=== PATIENT | female | born 1955 | race Caucasian/White ===

== ENCOUNTER → 2016-11-01 | Outpatient (CLI) | payer OTHER | LOC: FIMAGING 16:22 | PROVIDERS: ATTEND Internal Medicine Hematology & Oncology | DX: I82.412 Acute embolism and thrombosis of left femoral vein (principal); I82.432 Acute embolism and thrombosis of left popliteal vein; I82.890 Acute embolism and thrombosis of other specified veins ==

== ENCOUNTER → 2016-12-23 | Outpatient (CLI) | payer OTHER | LOC: FIMAGING 14:24 | PROVIDERS: ATTEND Internal Medicine Hematology & Oncology | DX: I82.402 Acute embolism and thrombosis of unspecified deep veins of left lower extremity (principal) ==

== ENCOUNTER 2018-05-02 14:23 | Inpatient (IN) | payer OTHER ==
--- NOTE | 2018-05-02 14:40 | EDPHY ---
H & P Time Seen by Provider: 05/02/18 14:26 HPI/ROS: Chief complaint. Weakness, fall last night HPI. 62-year-old female here by EMS. Apparent new and recent diagnosis about a week ago of COPD and pneumonia. She had a fall and broke her radius and ulna 1 week ago. While she was at the hospital she was diagnosed with COPD and pneumonia. She had wrist surgery 3 days ago. It was recommended that she go to jail facility but refused and has been staying with a friend. She realizes she is not going to be able to manage staying at the friend's house. She was unable to care for herself. Last night she was unable to get off the toilet by herself and slid down to the floor and slipped on the bathroom floor. She is taking Zithromax and prednisone for her COPD and pneumonia. She normally lives by herself. She was started on 24/7 oxygen at 6 liters/minute after discharge from the hospital. She has no chest discomfort. No worsening shortness of breath no abdominal pain. Mild pain in the left wrist but good sensation and movement to the fingers of the left hand. She is in a splint and sling ROS 10 systems were reviewed and negative with the exception of the elements mentioned in the history of present illness Past Medical/Surgical History: COPD, TBI, migraines, PTSD, depression, DVT, chronic renal insufficiency, appendectomy, cholecystectomy, recent ORIF left wrist Social History: Single, nonsmoker, no alcohol Physical Exam: General Appearance: Well-developed female mild distress vital signs are stable. 87% at oxygen saturation on room air Eyes: Pupils equal and round no pallor or injection. ENT, Mouth: Mucous membranes are moist. Respiratory: No retractions. Mild inspiratory expiratory wheezing Cardiovascular: Regular rate and rhythm. Gastrointestinal: Abdomen is soft and nontender, no masses, bowel sounds normal. Neurological: Awake and alert, sensory and motor exams grossly normal. Skin: Warm and dry, no rashes. Musculoskeletal: Neck is supple nontender. Extremities bruising to the fingers of the left hand. Good range of motion. Normal sensation. Capillary refill less than 2 sec Psychiatric: Patient is oriented X 3, there is no agitation. Constitutional: Initial Vital Signs Temperature (C) 36.4 C 05/02/18 14:35 Heart Rate 79 05/02/18 14:35 Respiratory Rate 22 H 01/05/19 14:35 Blood Pressure 139/83 H 05/02/18 14:35 O2 Sat (%) 87 L 05/02/18 14:35 O2 Delivery Mode Nasal Cannula O2 (L/minute) 5 Allergies/Adverse Reactions: Cephalosporins Allergy (Verified 05/02/18 14:47) Penicillins Allergy (Verified 05/02/18 14:47) Sulfa (Sulfonamide Antibiotics) Allergy (Verified 05/02/18 14:47) Home Medications: Medication Instructions Recorded Abilify 05/02/18 Albuterol 5 mg/ml INH 05/02/18 Azithromycin 05/02/18 CLONAZEPAM 05/02/18 Cymbalta 05/02/18 Minocycline HCl 05/02/18 Mirtazapine 05/02/18 Neurontin 05/02/18 Ritalin 5mg (*) 05/02/18 Topamax 05/02/18 Unk Copd Inhaler 05/02/18 oxyCODONE CR 05/02/18 Medical Decision Making - Diagnostics Imaging Results: Imaging Impressions Chest X-Ray 05/02/18 15:06 Impression: Findings suggestive of heart failure/fluid overload, superimposed pneumonia cannot be radiographically excluded Wrist X-Ray 05/02/18 15:07 Impression: Postsurgical changes of open reduction and internal fixation of a comminuted distal radial metaphysis fracture in good anatomic alignment. Mildly displaced ulnar styloid fracture. Procedures: IV normal saline DuoNeb updraft air battle manager evaluation ED Course/Re-evaluation: air battle manager is unable to make direct admit to [facility]. Patient and I discussed imaging and lab results. We discussed treatment plan including recommendation for admission. She expresses understanding and agreement I consulted discussed case with Dr. Lopez, hospitalist, who agrees to the admission BNP is pending Differential Diagnosis: Patient is new diagnosis of COPD and now oxygen dependent. She also had a diagnosis of pneumonia. Chest x-ray really appears to be more CHF than evidence for pneumonia. She has failed outpatient treatment and will be admitted for jail facility placement - Data Points Laboratory Results: Laboratory Results 05/02/18 15:28 05/02/18 15:28 05/02/18 05/02/18 05/02/18 15:28 15:28 15:28 WBC 7.98 10^3/uL 10^3/uL (3.80-9.50) RBC 5.22 10^6/uL 10^6/uL (4.18-5.33) Hgb 17.5 g/dL H g/dL (12.6-16.3) Hct 55.6 % H % (38.0-47.0) MCV 106.5 fL H fL (81.5-99.8) MCH 33.5 pg pg (27.9-34.1) MCHC 31.5 g/dL L g/dL (32.4-36.7) RDW 15.1 % % (11.5-15.2) Plt Count 172 10^3/uL 10^3/uL (150-400) MPV 10.0 fL fL (8.7-11.7) Neut % (Auto) 67.3 % % (39.3-74.2) Lymph % (Auto) 17.8 % % (15.0-45.0) [place] % (Auto) 11.7 % % (4.5-13.0) Eos % (Auto) 2.6 % % (0.6-7.6) Baso % (Auto) 0.3 % % (0.3-1.7) Nucleat RBC Rel Count 0.0 % % (0.0-0.2) Absolute Neuts (auto) 5.38 10^3/uL 10^3/uL (1.70-6.50) Absolute Lymphs (auto) 1.42 10^3/uL 10^3/uL (1.00-3.00) Absolute Monos (auto) 0.93 10^3/uL H 10^3/uL (0.30-0.80) Absolute Eos (auto) 0.21 10^3/uL 10^3/uL (0.03-0.40) Absolute Basos (auto) 0.02 10^3/uL 10^3/uL (0.02-0.10) Absolute Nucleated RBC 0.00 10^3/uL 10^3/uL (0-0.01) Immature Gran % 0.3 % % (0.0-1.1) Immature Gran # 0.02 10^3/uL 10^3/uL (0.00-0.10) Sodium 138 mEq/L mEq/L (135-145) Potassium 4.5 mEq/L mEq/L (3.5-5.2) Chloride 108 mEq/L mEq/L (97-110) Carbon Dioxide 27 mEq/l mEq/l (22-31) Anion Gap 3 mEq/L L mEq/L (6-14) BUN 16 mg/dL mg/dL (7-23) Creatinine 0.8 mg/dL mg/dL (0.6-1.0) Estimated GFR > 60 Glucose 89 mg/dL mg/dL (70-100) Calcium 8.7 mg/dL mg/dL (8.5-10.4) NT-Pro-B Natriuret Pep Pending Medications Given: Discontinued Medications Albuterol/Ipratropium (Duoneb) 3 ml IH EDNOW ONE Stop: 05/02/18 15:07 Last Admin: 05/02/18 15:12 Dose: 3 ml Departure - Departure Disposition: [facility] Inpatient Acute Clinical Impression: Dyspnea Qualifiers: Dyspnea type: shortness of breath Qualified Code(s): R06.02 - Shortness of breath; R06.00 - Dyspnea, unspecified; R06.01 - Orthopnea Condition: Good Referrals: Patient,NotPresent [Unknown] - As per Instructions
[2018-05-02] MEDS: IPRATROPIUM/ALBUTEROL 3 ML DEYVIAL IH ONE (15:12)
[2018-05-02 15:41] LABS: PLATELET COUNT 172 10^3/uL (150-400)
[2018-05-02] MEDS ORDERED: ALBUTEROL 60 PUFFS/8 GM MDI IH PRN (17:02)
[2018-05-02] MEDS ORDERED: ACETAMINOPHEN 325 MG TAB PO PRN (17:02)
[2018-05-02] MEDS ORDERED: ONDANSETRON 4 MG/2 ML VIAL IVP PRN (17:02)
[2018-05-02] MEDS ORDERED: ONDANSETRON DISINTEGRATING 4 MG TAB PO PRN (17:02)
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
--- NOTE | 2018-05-02 19:27 | ASMTCMCOM ---
CM Note CM Note Notes: Pt presented to the ED via EMS for weakness, mechanical fall and inability to care for herself. Pt was discharged from [facility] yesterday. Pt had been admitted for left wrist fracture (which was surgically repaired). Pt reportedly went into acute resp failure, was intubated and on their ICU for 3 days.(See H&P for more info and PMH). Pt had initially been recommended to DC from [facility] to [facility] but because was unable to accept pt's therapy cat, pt elected to DC to a friend's house instead. Pt did not fill her Rxns and later was took weak to get off the toilet last night and so she slept on the bathroom floor. Pt now states she realizes she needs additional help and has been able to have her therapy cat stay w/her friend Libby. Spoke w/Carl Hernandez in Admissions at [facility] and he states that he was able to confirm that pt had at least 3 midnights at [facility] so she would be able to be admitted to as early as Friday as soon as her insurance authorizes the SNF stay. Pt has [place] [employer] and it can take 48-72 hours to authorize. This CM faxed completed RODRÍGUEZ to [facility] and medical records from most recent admission received and tubed up to 3E to be placed in pt's chart. Pt lives in [place]. Pt's PCP is Ana Cristina Campbell. IAnticipate pt to DC to [facility]. CM to follow. Date Signed: 05/02/2018 07:27 PM Electronically Signed By:Radha Hayden RN
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
--- NOTE | 2018-05-02 20:55 | CPEKG ---
Test Reason : OPEN Blood Pressure : / mmHG Vent. Rate : 071 BPM Atrial Rate : 071 BPM P-R Int : 187 ms QRS Dur : 086 ms QT Int : 390 ms P-R-T Axes : 072 076 005 degrees QTc Int : 424 ms Sinus rhythm Abnormal T, consider ischemia, anterior leads Confirmed by Haider Arias ([id number]) on 05/02/2018 8:54:17 PM Referred By: Confirmed By:Haider Arias
[2018-05-02] MEDS: DOXEPIN HCL 10 MG CAP PO SCH (20:59)
[2018-05-02] MEDS: MIRTAZAPINE 30 MG TAB PO SCH (20:59)
[2018-05-02] MEDS: TOPIRAMATE 100 MG TAB PO SCH (20:59)
[2018-05-02] MEDS: DULoxetine 60 MG CAP PO SCH (20:59)
[2018-05-02] MEDS: MINOCYCLINE HCL 50 MG CAP PO SCH (20:59)
[2018-05-02] MEDS: clonazePAM 1 MG TAB PO SCH (20:59)
[2018-05-02] MEDS: GABAPENTIN 400 MG CAP PO SCH (20:59)
[2018-05-02] MEDS ORDERED: IPRATROPIUM/ALBUTEROL 3 ML DEYVIAL IH SCH (21:00)
[2018-05-02] MEDS: RIVAROXABAN 15 MG TAB PO SCH (21:02)
[2018-05-02] MEDS: oxyCODONE IR 5 MG TAB PO PRN (21:14)
[2018-05-02] MEDS: FLUTICASONE/SALMETER 500/50MCG DISKUS IH SCH (22:37)
[2018-05-02] MEDS ORDERED: ALBUTEROL HFA 200 PUFFS/8.5 GM MDI IH PRN (23:00)
[2018-05-03 06:53] LABS: PLATELET COUNT 173 10^3/uL (150-400)
--- NOTE | 2018-05-03 08:31 | PDMN ---
Medical Necessity Medical necessity: [facility] systemic condition adult failure to thrive pt recently DC from [place] on 6 L O2- pt went to friends house unable to care for self. cont. with 6 LO2, ( previously on none)- CXR suggests pulm. edema, pt with cough, chronic leg swelling, gen. weakness, PT/OT needed,
[2018-05-03] MEDS ORDERED: ENOXAPARIN 40 MG/0.4 ML SYR SC SCH (09:00)
--- NOTE | 2018-05-03 09:33 | HOSPPROG ---
Hospitalist Progress Note Assessment/Plan: 62yo F who was discharged 05/[address] [facility] hospital after 7 day hospitalization presents with weakness and inability to care for self. Hospitalized at [facility] after fall where she broke her left wrist. This was surgically repaired. She went into respiratory failure while at the hospital, was intubated and spent 3 days in the ICU. She was diagnosed with pneumonia and COPD exacerbation and was discharged on 6L of supplemental oxygen (previously on none) as well as azithromycin and steroids but she had not picked up prescriptions for these. Providers at [facility] had recommended SNF but she refused and went to stay at friend's house but she was too weak to get off the toilet last night and slept on the ground. First encounter, chart reviewed. * Deconditioning, generalized weakness -recent hospitalization -patient agreeable to SNF * Subacute hypoxic respiratory failure -reviewed records from [facility]-she had respiratory failure from narcotic use - hypercarbic resp failure -also noted to have COPD, she had a CTA that showed no PE but RLL pna -TTE showed LVEF of 55% w mild RV dilation (done at [facility]) -chest xray and BNP show pulm edema * COPD -inhalers, prn duonebs -she was on Prednisone [address] [facility] *tobacco dependence * Polycythemia: Suspect related to chronic hypoxia -secondary from chronic hypoxemia -reviewed her labs from [facility]-ongoing * Macrocytosis -B12 and folate levels stable * H/o recurrent DVTs - Xarelto. * Recent L wrist fracture: - S/p ORIF at [facility] on 04/29. Currently in cast -will need sutures removed in 10-12 days from the day of ORIF -will need to be converted to a short arm cast in 3-4 weeks -f/u with Dr Sahu w orthopedics -TDWB w left upper extremity, no lifting, pushing or pulling *Depression, anxiety, PTSD: Continue home mirtazapine, terazosin, Abilify, Cymbalta. * Migraine headaches: - Topamax, Imitrex PRN. * Chronic pain: Continue gabapentin, home oxycodone PRN. * H/o CKD: Cr 0.8. *hx of TBI *plan: nicotine patch, Lasix x 1, continue supportive care, discussed case w CM who is looking into SNF for Alisa. Subjective: Alisa is asking for a nicotine patch. Has no specific complaints. Objective: Vital Signs Temp Pulse Resp BP Pulse Ox 36.7 C 78 16 120/71 94 05/03/18 08:00 05/03/18 08:00 05/03/18 08:00 05/03/18 08:00 05/03/18 08:00 Laboratory Results 05/03/18 05:26 05/03/18 05:26 05/02/18 05/03/18 05/04/18 05:59 05:59 05:59 Intake Total 600 Output Total 1500 Balance -900 - Physical Exam Constitutional: appears nourished, chronically ill appearing Eyes: PERRL Ears, Nose, Mouth, Throat: hearing normal Cardiovascular: regular rate and rhythym Respiratory: no respiratory distress, other (rhales in the bases) Gastrointestinal: normoactive bowel sounds Skin: warm, other (left wrist in cast, fingers warm, swollen, ecchymotic) Musculoskeletal: generalized weakness Neurologic: AAOx3 Psychiatric: interacting appropriately ICD10 Worksheet Patient Problems: Problems Problem Status Onset Dyspnea Acute
[2018-05-03] MEDS: TOPIRAMATE 100 MG TAB PO SCH ×2 (09:36→20:58)
[2018-05-03] MEDS: ARIPiprazole 5 MG TAB PO SCH (09:36)
[2018-05-03] MEDS: RIVAROXABAN 15 MG TAB PO SCH ×2 (09:36→17:57)
[2018-05-03] MEDS: DULoxetine 60 MG CAP PO SCH ×2 (09:37→20:58)
[2018-05-03] MEDS: GABAPENTIN 300 MG CAP PO SCH ×2 (09:37→13:11)
[2018-05-03] MEDS: oxyCODONE IR 5 MG TAB PO PRN ×2 (09:42→20:58)
[2018-05-03] MEDS: IPRATROPIUM/ALBUTEROL 3 ML DEYVIAL IH PRN ×3 (10:52→22:27)
[2018-05-03] MEDS: FLUTICASONE/SALMETER 500/50MCG DISKUS IH SCH ×2 (10:55→22:28)
[2018-05-03] MEDS ORDERED: FUROSEMIDE 20 MG/2 ML VIAL IVP ONE (11:05)
[2018-05-03] MEDS: NICOTINE 21 MG/24 HR PATCH TD SCH (11:27)
[2018-05-03] MEDS: GABAPENTIN 400 MG CAP PO SCH (20:58)
[2018-05-03] MEDS: clonazePAM 1 MG TAB PO SCH (20:58)
[2018-05-03] MEDS: MINOCYCLINE HCL 50 MG CAP PO SCH (20:58)
[2018-05-03] MEDS: DOXEPIN HCL 10 MG CAP PO SCH (20:58)
[2018-05-03] MEDS: MIRTAZAPINE 30 MG TAB PO SCH (20:58)
[2018-05-04] MEDS: IPRATROPIUM/ALBUTEROL 3 ML DEYVIAL IH PRN ×2 (05:53→16:24)
[2018-05-04] MEDS: FLUTICASONE/SALMETER 500/50MCG DISKUS IH SCH ×2 (05:55→22:06)
[2018-05-04] MEDS: DULoxetine 60 MG CAP PO SCH ×2 (08:46→21:28)
[2018-05-04] MEDS: ARIPiprazole 5 MG TAB PO SCH (08:46)
[2018-05-04] MEDS: GABAPENTIN 300 MG CAP PO SCH ×2 (08:46→11:56)
[2018-05-04] MEDS: RIVAROXABAN 15 MG TAB PO SCH ×2 (08:46→17:47)
[2018-05-04] MEDS: TOPIRAMATE 100 MG TAB PO SCH ×2 (08:47→21:28)
[2018-05-04] MEDS: NICOTINE 21 MG/24 HR PATCH TD SCH (08:47)
--- NOTE | 2018-05-04 15:55 | HOSPPROG ---
Hospitalist Progress Note Assessment/Plan: 62yo F who was discharged 05/02 from [facility] hospital after 7 day hospitalization presents with weakness and inability to care for self. Hospitalized at [facility] after fall where she broke her left wrist. This was surgically repaired. She went into respiratory failure while at the hospital, was intubated and spent 3 days in the ICU. She was diagnosed with pneumonia and COPD exacerbation and was discharged on 6L of supplemental oxygen (previously on none) as well as azithromycin and steroids but she had not picked up prescriptions for these. Providers at [facility] had recommended SNF but she refused and went to stay at friend's house but she was too weak to get off the toilet last night and slept on the ground. * Deconditioning, generalized weakness -recent hospitalization -patient agreeable to SNF * Subacute hypoxic respiratory failure -reviewed records from [facility]-she had respiratory failure from narcotic use - hypercarbic resp failure -also noted to have COPD, she had a CTA that showed no PE but RLL pna -TTE showed LVEF of 55% w mild RV dilation (done at [facility]) -chest xray and BNP show pulm edema (was given a dose of IV Lasix yesterday) * COPD -inhalers, prn duonebs -she was on Prednisone 40 mg at [facility] (this is not on her MAR here) *tobacco dependence -Nicotine patch -we discussed the importance of cessation * Polycythemia: Suspect related to chronic hypoxia -secondary from chronic hypoxemia -reviewed her labs from [facility]-ongoing * Macrocytosis -B12 and folate levels stable * H/o recurrent DVTs - Xarelto. * Recent L wrist fracture: - S/p ORIF at [facility] on 04/29. Currently in cast -will need sutures removed in 10-12 days from the day of ORIF -will need to be converted to a short arm cast in 3-4 weeks -f/u with Dr Luis Alberto lewis orthopedics -TDWB w left upper extremity, no lifting, pushing or pulling *Depression, anxiety, PTSD: Continue home mirtazapine, terazosin, Abilify, Cymbalta. * Migraine headaches: - Topamax, Imitrex PRN. * Chronic pain: Continue gabapentin, home oxycodone PRN. * H/o CKD: Cr 0.8. *hx of TBI *plan: she is much improved, awaiting placement at a SNF Subjective: Alisa is feeling much better today, up in chair. No c/o pain. Objective: Vital Signs Temp Pulse Resp BP Pulse Ox 36.6 C 88 20 123/75 H 90 L 05/04/18 07:57 05/04/18 07:57 05/04/18 07:57 05/04/18 07:57 05/04/18 07:57 Laboratory Results 05/03/18 05:26 05/04/18 05:25 05/03/18 05/04/18 05/05/18 05:59 05:59 05:59 Intake Total 600 300 860 Output Total 6965 391 7387 Balance -900 -150 -640 - Physical Exam Constitutional: no apparent distress, appears nourished, not in pain, chronically ill appearing Eyes: PERRL Ears, Nose, Mouth, Throat: hearing normal Cardiovascular: regular rate and rhythym Respiratory: no respiratory distress, reduced air movement (lung sounds much improved) Skin: warm, other (left fingers w good cms, ecchymotic, warm, swollen) Musculoskeletal: generalized weakness Neurologic: AAOx3 Psychiatric: interacting appropriately, not anxious, not encephalopathic ICD10 Worksheet Patient Problems: Problems Problem Status Onset Dyspnea Acute
[2018-05-04] MEDS: oxyCODONE IR 5 MG TAB PO PRN (19:24)
[2018-05-04] MEDS: MIRTAZAPINE 30 MG TAB PO SCH (21:28)
[2018-05-04] MEDS: GABAPENTIN 400 MG CAP PO SCH (21:28)
[2018-05-04] MEDS: DOXEPIN HCL 10 MG CAP PO SCH (21:28)
[2018-05-04] MEDS: clonazePAM 1 MG TAB PO SCH (21:28)
[2018-05-04] MEDS: MINOCYCLINE HCL 50 MG CAP PO SCH (21:28)
[2018-05-05 07:42] VITALS: BP 117/76
[2018-05-05] MEDS: ARIPiprazole 5 MG TAB PO SCH (08:54)
[2018-05-05] MEDS: DULoxetine 60 MG CAP PO SCH (08:54)
[2018-05-05] MEDS: NICOTINE 21 MG/24 HR PATCH TD SCH (08:54)
[2018-05-05] MEDS: GABAPENTIN 300 MG CAP PO SCH ×2 (08:54→12:02)
[2018-05-05] MEDS: RIVAROXABAN 15 MG TAB PO SCH (08:55)
[2018-05-05] MEDS: TOPIRAMATE 100 MG TAB PO SCH (08:55)
[2018-05-05] MEDS: FLUTICASONE/SALMETER 500/50MCG DISKUS IH SCH (09:26)
[2018-05-05] MEDS: IPRATROPIUM/ALBUTEROL 3 ML DEYVIAL IH PRN (09:27)
--- NOTE | 2018-05-05 11:11 | PDIAF ---
- Diagnosis Diagnosis: Hypoxia Code Status: Full Code - Medication Management Discharge Medications: electronically signed and located in the Home Medication List. PICC Care - Routine: N/A - Orders Services needed: Registered Nurse, Physical Therapy, Occupational Therapy Diet Recommendation: no restrictions on diet Additional Instructions: You need to contact and follow up w/ Dr Edgar Sahu (with Health system) who repaired your Left wrist. Your surgery was performed on 04/29/18. Follow up is requested in office 10-14 day post operatively...this is for suture removal and splint exchange. Left Upper Ext in touch down weight bearing. No lifting, pushing, pulling with left upper extremity. Keep dressings and splint clean and dry until follow-up with orthopedics. - Follow Up Care Current Providers and Referrals: Patient,NotPresent [Unknown] - As per Instructions (Dr Edgar Sahu ([facility]) [phone] Orthopedics. call for Appt. ) Ana Cristina Campbell MD [Primary Care Provider] - (call to see post hospitalization. )
--- NOTE | 2018-05-05 11:47 | ASMTDCNOTE ---
Case Management Discharge Discharge Order Complete? Answers: Yes Patient to Obtain Answers: Other Notes: [facility] Medications Transportation Arranged Answers: Other Notes: Ranjeet Thomas w/c Transport will Pick (Date 05/05/2018 01:00 PM & Time) EMTALA Complete Answers: No Case Management Transport Answers: Yes Form Complete Faxed Final Orders Answers: Yes Agency/Facility Transfer Answers: Yes Report Printed & Faxed to Receiving Agency Family Notified Answers: No Discharge Comments Notes: Pts case discussed w/ Tash Goode NP. Pt is being d/c'd today. DC orders sent to [facility] w/ level 2 pasrr. Duarte RN will call to give report. CM available for changes. Plan: [facility] Date Signed: 05/05/2018 11:46 AM Electronically Signed By:KESHA Cano
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
--- NOTE | 2018-05-05 15:36 | GDS ---
DISCHARGE DIAGNOSES: 1. Generalized weakness. 2. Hypoxemic respiratory failure. 3. Deconditioning. 4. Chronic obstructive pulmonary disease. 5. Tobacco dependency. 6. Polycythemia. 7. Macrocytosis. 8. History of deep vein thrombosis. 9. Recent left wrist fracture. 10. Depression. 11. Migraine headaches. 12. Traumatic brain injury. 13. Chronic pain. STUDIES AND PROCEDURES DONE: Wrist x-ray. PHYSICAL EXAM: GENERAL: The patient is alert. VITAL SIGNS: Afebrile at 36.8, pulse is 93, respirato ry rate is 20, blood pressure is 117/76. She is saturating 88% on 5 L. I have seen and evaluated the patient on the day of discharge. HOSPITAL COURSE: Patient is a 62-year-old female with a long medical history, recently discharged [facility]. She was evaluated and diagnosed with: 1. Deconditioning with generalized weakness. The patient requires penitentiary facility and will be transitioned at the time of disposition. 2. Acute hypoxemic respiratory failure. The patient states that she was not on oxygen previous to h er recent hospitalization. She is requiring now 4-5 L of oxygen. Echocardiogram demonstrates some m ild RV dilation with some pulmonary edema noted on chest x-ray. The patient does have mild underlyin g component of heart failure. She will continue supplemental oxygen. 3. Chronic obstructive pulmonary disease. Inhalers and DuoNeb have been initiated as well as predni sone therapy. 4. Tobacco dependency. Nicotine patch has been provided. Cessation has been recommended. 5. Polycythemia. This is likely in the setting of chronic hypoxia. The patient states she was not previously wearing oxygen. However, I suspect that she would have qualified for it and benefitted [facility] it. 6. Macrocytosis. Her laboratory values are stable. This is a chronic condition. 7. History of DVT. She has been continued on Xarelto. 8. Recent left wrist fracture. She had surgical intervention at [facility]. She will follow up with galindo Zelaya at [facility]. 9. Depression, anxiety with PTSD and traumatic brain injury. Her home medications have been continu ed. 10. Chronic pain. Her gabapentin and Oxy have been continued. DISPOSITION: The patient will be discharged to penitentiary facility for further medical manageme nt and rehabilitation. There are no pending studies. DISCHARGE MEDICATIONS: Please refer to EMR form. New medications include prednisone, Xarelto, OxyIR . I spent greater than 35 minutes in the care, coordination, and management of patient's disposition. /[id number]/MODL
== END 2018-05-05 13:36 | DRG 189 ==
LOC: MERGE 16:34 → F3E 18:36
PROVIDERS: ADMIT Internal Medicine; ATTEND Internal Medicine
DX: J96.01 Acute respiratory failure with hypoxia (principal); R53.1 Weakness; J44.9 Chronic obstructive pulmonary disease, unspecified; D75.1 Secondary polycythemia; D75.89 Other specified diseases of blood and blood-forming organs; S52.592D Other fractures of lower end of left radius, subsequent encounter for closed fracture with routine healing; S52.612D Displaced fracture of left ulna styloid process, subsequent encounter for closed fracture with routine healing; F17.200 Nicotine dependence, unspecified, uncomplicated; R62.7 Adult failure to thrive; R22.43 Localized swelling, mass and lump, lower limb, bilateral; F32.9 Major depressive disorder, single episode, unspecified; F41.9 Anxiety disorder, unspecified; F43.10 Post-traumatic stress disorder, unspecified; G43.909 Migraine, unspecified, not intractable, without status migrainosus; G89.29 Other chronic pain; W19.XXXD Unspecified fall, subsequent encounter; Z74.2 Need for assistance at home and no other household member able to render care; Z79.01 Long term (current) use of anticoagulants; Z79.82 Long term (current) use of aspirin; Z86.718 Personal history of other venous thrombosis and embolism; Z87.448 Personal history of other diseases of urinary system; Z87.820 Personal history of traumatic brain injury; Z82.49 Family history of ischemic heart disease and other diseases of the circulatory system; Z98.890 Other specified postprocedural states; Z99.81 Dependence on supplemental oxygen; Z88.0 Allergy status to penicillin; Z88.2 Allergy status to sulfonamides
CPT/HCPCS: 82607-90; 97116-GP; 97161-GP; 97165-GO; 97530-GP; 97535-GO; J1940; J2405

== ENCOUNTER → 2018-07-07 | Outpatient (CLI) | payer OTHER | LOC: FIMAGING 15:55 | PROVIDERS: ATTEND Internal Medicine Pulmonary Disease | DX: J84.9 Interstitial pulmonary disease, unspecified (principal) ==

== ENCOUNTER → 2018-10-09 | Outpatient (CLI) | payer OTHER | LOC: FIMAGING 13:29 ==